=== PATIENT | male | born 1960 | race Caucasian/White ===

== ENCOUNTER → 2019-03-12 10:51 | Outpatient (CLI) | payer BC, SELFPAY ==
--- NOTE | 2019-03-12 11:01 | XR_ITS ---
PROCEDURE: XR CHEST 2V CLINICAL HISTORY: SOB COMPARISON: No exams were available for comparison FINDINGS: The cardiomediastinal silhouette and pulmonary vascularity are within normal limits. The lungs are clear without infiltrates, suspicious nodules, or pleural effusions. No acute bony abnormalities. There is metallic orthopedic hardware at the midline of the lower cervical spine. IMPRESSION: No acute findings. Dictated by: Urbano Shabazz 03/12/2019 11:56 Electronically signed by Urbano Shabazz in [place] 03/12/2019 11:56
== END ==
PROVIDERS: PCP Family Medicine; Visit Provider Family Medicine
DX: R06.02 Shortness of breath (principal)
CPT/HCPCS: 71046